=== PATIENT | male | born 1990 | race American Indian/Alaskan Native ===

== ENCOUNTER 2021-12-03 23:51 | Emergency (ER) | payer SELFPAY ==
[~2021-12-03 23:51] MED LIST: ETOMIDATE 20 MG/10 ML INJ IV ONE; MIDAZOLAM 5 MG/5 ML INJ MDV IV ONE; SUCCINYLCHOLINE CHLORIDE 200 MG/10 ML INJ MDV ONE
[2021-12-03] MEDS ORDERED: fentaNYL 100 MCG/2 ML INJ ONE (23:54)
[2021-12-03] MEDS ORDERED: LORazepam 2 MG/ML VIAL ONE (23:54)
[2021-12-04] MEDS ORDERED: fentaNYL 100 MCG/2 ML INJ IV ONE
[2021-12-04] MEDS ORDERED: LORazepam 2 MG/ML VIAL IV ONE
[2021-12-04] MEDS ORDERED: SODIUM CHLORIDE 0.9% 500 ML 500 ML IV ONE
[2021-12-04 00:10] LABS: Hematocrit 35.7 % (35.5-45.6); Mean Corpuscular HGB Conc 31 % (32-34); Mean Corpuscular Volume 78 fl (84-94); Platelet Count 332 K/mm3 (140-440); Red Blood Count 4.58 M/mm3 (3.65-5.03); Red Cell Distribution Width 16.4 % (13.2-15.2)
[2021-12-04] MEDS: MIDAZOLAM 2 MG/2 ML INJ IV PRN ×4 (00:10→00:40)
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
[2021-12-04 00:23] LABS: Albumin 3.7 g/dL (3.9-5); Calcium 8.8 mg/dL (8.4-10.2)
[2021-12-04 00:24] LABS: INR 0.97 (0.87-1.13)
[2021-12-04 00:25] LABS: Partial Thromboplastin Time 23.5 Sec. (24.2-36.6)
[2021-12-04] MEDS ORDERED: LACTATED RINGERS 1000 ML IV SOLN IV ONE (00:28)
[2021-12-04] MEDS ORDERED: SODIUM CHLORIDE 0.9% 1000 ML 4,000 ML ONE (00:31)
[2021-12-04] MEDS ORDERED: SODIUM CHLORIDE IRRI 500 ML 500 ML IR ONE (00:32)
[2021-12-04] MEDS ORDERED: ETOMIDATE 20 MG/10 ML INJ IV ONE (00:33)
[2021-12-04] MEDS ORDERED: SUCCINYLCHOLINE CHLORIDE 200 MG/10 ML INJ MDV IV ONE (00:33)
[2021-12-04] MEDS ORDERED: MIDAZOLAM/NS Drip 100mg/100ml 100 MG/100 ML BAG IV SCH (01:00)
--- NOTE | 2021-12-04 01:22 | XRay Report ---
CHEST 1 VIEW 12/04/2021 12:45 AM INDICATION / CLINICAL INFORMATION: intubation. COMPARISON: Chest radiograph dated 12/03/2021 FINDINGS: SUPPORT DEVICES: Endotracheal tube terminates approximately 3.3 cm the lauren. Enteric tube terminate s within the stomach with the side-port within the stomach as well. HEART / MEDIASTINUM: No significant abnormality. LUNGS / PLEURA: No significant pulmonary or pleural abnormality. No pneumothorax. ADDITIONAL FINDINGS: No significant additional findings. IMPRESSION: 1. Tubes as above, no pneumothorax. Signer Name: Bacilio Light DO Signed: 12/04/2021 1:18 AM Workstation Name: [email or web address]
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
[2021-12-04 02:30] VITALS: BP 111/54
== END 2021-12-04 02:36 | disposition short-term general hospital (02) ==
LOC: ED 23:51
DX: S21.339A Puncture wound without foreign body of unspecified front wall of thorax with penetration into thoracic cavity, initial encounter (principal); W34.09XA Accidental discharge from other specified firearms, initial encounter; Y93.89 Activity, other specified; Y92.89 Other specified places as the place of occurrence of the external cause; Y99.8 Other external cause status
CPT/HCPCS: 36415; 36430; 71045; 72170; 74018; 80053; 83690; 84484; 85027; 85610; 85730; 86850; 86900; 86901; 86920; 96365; 96375; 99291; J0330; J2060; J2250; J3010; J3490; J7030; J7040; P9016; P9017